=== PATIENT | male | born 1950 | race Caucasian/White ===

== ENCOUNTER → 2017-03-19 | Outpatient (CLI) | payer OTHER, BC ==
[~2017-03-19] MED LIST: ASCO500T16 PO; MINERAL SUPPLEMENT PO; VITA1CAP4 PO
[2017-03-19 13:16] LABS: BASO % 0.2 %; BASO ABS # 0.01 K/uL (0-0.2); COMPLETE YES; EOS % 1.8 %; HEMATOCRIT 46.8 % (42-52); IG% 0.2 %; LYMPH % 29.1 %; LYMPH ABS # 1.74 K/uL (1.2-3.4); MEAN CELL VOLUME 89.5 fL (80-100); MEAN CORPUSCULAR HGB CONC 34.6 g/dl (32-36); MONO % 10.7 %; PLATELET COUNT 224 K/uL (130-400); RED BLOOD COUNT 5.23 M/uL (4.7-6.1); WHITE BLOOD COUNT 5.97 K/uL (4.8-10.8)
[2017-03-19 13:57] LABS: ESTIMATED AVERAGE GLUCOSE 126 mg/dl; HA1C FLAG Normal (Normal)
[2017-03-19 14:30] LABS: ALT/SGPT 32 U/L (12-78); AST/SGOT 18 U/L (15-37); BLOOD UREA NITROGEN 26 mg/dl (7-18); BUN/CREATININE RATIO 31.3 (10-20); CALCIUM 9.2 mg/dl (8.5-10.1); CARBON DIOXIDE 28 mmol/L (21-32); CHLORIDE 103 mmol/L (98-107); CHOLESTEROL 173 mg/dl (0-200); CHOLESTEROL/HDL RATIO 3.7; CREATININE 0.84 mg/dl (0.60-1.40); GLUCOSE 109 mg/dl (70-99); HDL CHOLESTEROL 47 mg/dl; POTASSIUM 3.9 mmol/L (3.5-5.1); SODIUM 137 mmol/L (136-145); TRIGLYCERIDES 85 mg/dl (0-150); VERY LOW DENSITY LIPOPROT CALC 17 mg/dl
[2017-03-19 14:35] LABS: ALB/GLOB RATIO 1.2 (0.9-2); ALKALINE PHOSPHATASE 69 U/L (45-117); PROSTATE SPECIFIC ANTIGEN 0.474 ng/ml (0.000-4.000)
== END | disposition home or self-care (01) ==
LOC: C.LABSPEC 12:17
PROVIDERS: ATTEND Internal Medicine
DX: R73.9 Hyperglycemia, unspecified (principal); E78.5 Hyperlipidemia, unspecified; R53.83 Other fatigue; N40.0 Benign prostatic hyperplasia without lower urinary tract symptoms

== ENCOUNTER 2017-11-15 22:05 | Emergency (ER) | payer OTHER, BC ==
[~2017-11-15] VITALS: Ht 167.6 cm; Wt 63.4 kg
[2017-11-15 22:07] VITALS: TEMP 36.5; Ht 167.6 cm; Wt 63.4 kg
[2017-11-15] MEDS ORDERED: FAMOTIDINE 20MG/5ML IV PUSH IV STA (22:23)
[2017-11-15] MEDS ORDERED: DiphenhydrAMINE HCL 50 MG/ML VIAL IV STA (22:23)
[2017-11-15] MEDS: DEXAMETHASONE INJ 10 MG in SYRINGE 0 ML IV STA ×2 (22:35→22:53)
[2017-11-15] MEDS: DEXAMETHASONE SOD INJ 10 MG/ML VIAL ONE ×2 (22:35→22:36)
[2017-11-15] MEDS ORDERED: FAMO20TA9 PO (23:39)
[2017-11-15] MEDS ORDERED: DIPH25CA5 PO (23:39)
[2017-11-15 23:48] VITALS: BP 131/72; PULSE 50; O2SAT 96
--- NOTE | 2017-11-16 00:07 | EMERGENCY ROOM VISIT NOTE ---
History Report prepared by Randy: Katie Shook Under the Supervision of: Dr. Jarred Tom M.D. First contact with patient: 22:15 Chief Complaint: ALLERGIC REACTION Stated Complaint: REACTION TO BEE STING-RIGHT ARM Nursing Triage Summary: Pt stung by bee on right 3rd finger 2 hours [employer]IPE [employer] W[employer]. Pt reports redness, swelling and hives in hand that started 30min [employer]. Reports its spreading up right arm. Pt reports he was stung last year and developed celluitis. History of Present Illness The patient is a 67 year old male who presents to the Emergency Room with complaints of an episode of an allergic reaction that occurred today. The patient notes that he was reaching to move a flower pot when the pain began. He states that he iced his hand for 15 minutes. He notes that 30 minutes after he was stung, the area stated to bruise, swell, and become red. He describes the pain as a sharp and stabbing pain. He is not sure if the faiza is still in his hand. The patient complains of lightheadedness, swollen hands, hives on his arms, and redness on his arms. He notes that some of the redness on his arms is caused by sunburn. The patient denied difficulty breathing. He denies any recent falls. The patient notes that he did not eat today. He states that he has been stung one time in the past year, which has caused him to develop cellulitis. Source of History: patient Onset: Today Position: hand (right) Quality: sharp, stabbing Associated Symptoms: No SOB Note: The patient complains of lightheadedness, swollen hands, hives on his arms, and redness on his arms. Review of Systems See HPI for pertinent positives and negatives. A total of ten systems were reviewed and were otherwise negative. Past Medical & Surgical Medical Problems: (1) Atrial Fibrillation (2) Kidney stone Social History Smoking Status: Never Smoker Marital Status: Housing Status: lives with family Current/Historical Medications Scheduled Ascorbic Acid (Ascorbic Acid), 500 MG PO DAILY Diphenhydramine Hcl (Benadryl), 25 MG PO Q6 Famotidine (Pepcid), 1 TAB PO BID Vitamin E (E 1000), 1 CAP PO Q2D [Mineral Supplement], 2 TBS PO DAILY Allergies Coded Allergies: BEE STING (Verified Allergy, Severe, SWELLING, REDNESS UP ARM, 8/9/18) Penicillins (Verified Allergy, Intermediate, RASH, 09/03/13) Physical Exam Vital Signs Date Time Temp Pulse Resp B/P (MAP) Pulse Ox O2 Delivery O2 Flow Rate FiO2 11/15/17 23:48 50 14 131/72 96 Room Air 11/15/17 23:21 56 16 118/68 96 Room Air 11/15/17 22:15 142/80 11/15/17 22:12 96 Room Air 11/15/17 22:07 36.5 68 18 95 Room Air Physical Exam GENERAL: Awake, alert, well-appearing, in no distress HENT: Normocephalic, atraumatic. Oropharynx without edema or swelling. EYES: Normal conjunctiva. Sclera non-icteric. NECK: Supple. No nuchal rigidity. RESPIRATORY: Clear to auscultation. No wheezes. Normal respiratory effort. CARDIAC: Normal rate. Normal rhythm. Extremities warm and well perfused. GI: Soft, non-distended. No tenderness to palpation. No rebound or guarding. RECTAL: Deferred. MUSCULOSKELETAL: Atraumatic. Chest examination reveals no tenderness. UPPER EXTREMITIES: Redness and swelling of the right hand extending from the right middle finger to the distal portion of the hand. No significant tenderness. A few scattered hives on the right forearm and left forearm. Puncture wound consistent with bee sting on the lateral middle finger proximal phalange. No stinger present. No bruising noted. LOWER EXTREMITIES: Calves are equal size bilaterally and non-tender. No edema NEURO: Normal sensorium. No sensory or motor deficits noted. No facial droop. SKIN: Warm and dry. No rash or jaundice noted. Medical Decision & Procedures Medications Administered Medications (Trade) Dose Ordered Sig/Christine Route Start Time Stop Time Status Last Admin Dose Admin Dexamethasone Sodium Phosphate 10 mg/Syringe 2.5 ml @ 1 mls/min ONE STAT IV 11/15/17 22:23 11/15/17 22:25 DC 11/15/17 22:53 1 MLS/MIN Famotidine (Pepcid 20mg Iv Push) 20 mg ONE STAT IV 11/15/17 22:23 11/15/17 22:24 DC 11/15/17 22:35 20 MG Diphenhydramine HCl (Benadryl Inj) 25 mg NOW STAT IV 11/15/17 22:23 11/15/17 22:24 DC 11/15/17 22:34 25 MG ED Course 8: The patient was evaluated in room A10. A complete history and physical exam was performed. 2222: Ordered Benadryl Inj 25 mg IV, Famotidine 20 mg IV, Dexamethasone Sodium Phosphate 10 mg/Syringe 2.5 ml @ 1 mls/min IV, Decadron Inj 10 mg .route. 7: I reevaluated the patient. His rash is improving. Discussed results and discharge instructions: he verbalized understanding and agreement. The patient is ready for discharge. Medical Decision Differential diagnosis: Etiologies such as allergic reaction, anaphylaxis, urticaria, Steinberg-Jairo syndrome, toxic epidermal necrolysis, erythema multiforme, cellulitis, as well as others were entertained. Patient presents complaining of moving some flowering pots at home after coming home from [place] today and sustained a bee sting to his right middle finger. No significant allergic history in the past. States it was current on his right middle finger with significant redness and swelling no symptoms of his forearm. He came here for evaluation. No meds prior to arrival. Appears to be a fairly localized allergic reaction. Given Benadryl, steroid, and Pepcid. No evidence of acute anaphylaxis. Not in shock. No respiratory distress. Ice placed on area. Stinger is not present. Patient's symptoms began to improve after this treatment. Intact neurovascular status of right hand. Discussed return criteria with him and to monitor for systyremic symptoms or wound infection. Advised him to continue to use Benadryl and Pepcid for the next several days; Rx given. He was agreeable with this. Medication Reconcilliation Current Medication List: was personally reviewed by me Blood Pressure Screening Patient's blood pressure: Elevated blood pressure Blood pressure disposition: Elevated BP felt to be situational Impression Primary Impression: Allergic reaction Additional Impression: Bee sting reaction Scribe Attestation The scribe's documentation has been prepared under my direction and personally reviewed by me in its entirety. I confirm that the note above accurately reflects all work, treatment, procedures, and medical decision making performed by me. Departure Information Dispostion Home / Self-Care Prescriptions Famotidine (PEPCID) 20 Mg Tab 1 TAB PO BID for 5 Days, #10 TAB 5 Refills Prov: Jarred Tom M.D. 11/15/17 Diphenhydramine Hcl (Benadryl) 25 Mg Cap 25 MG PO Q6 for 3 Days, #12 CAP Prov: Jarred Tom M.D. 11/15/17 Referrals Boaz Plunkett M.D. (PCP) Forms HOME CARE DOCUMENTATION FORM, IMPORTANT VISIT INFORMATION Patient Instructions My [facility] Additional Instructions Please use Benadryl and Pepcid for the next 2-3 days and monitor for any worsening of your allergic reaction. If you begin to experience worsening specifically any difficulty breathing swelling of your face mouth or throat please call 911 and return emergently to the emergency department. Otherwise if questions and follow-up with your regular doctor in the next week. Monitor for signs of infection in this area as well. Problem Qualifiers Primary Impression: Allergic reaction Encounter type: initial encounter Qualified Codes: T78.40XA - Allergy, unspecified, initial encounter Additional Impression: Bee sting reaction Encounter type: initial encounter Injury intent: accidental or unintentional Qualified Codes: T63.441A - Toxic effect of venom of bees, accidental (unintentional), initial encounter
== END 2017-11-15 23:58 | disposition home or self-care (01) ==
LOC: C.EDB 22:06 → C.EDA 23:58
DX: T63.441A Toxic effect of venom of bees, accidental (unintentional), initial encounter (principal); I48.91 Unspecified atrial fibrillation; Z84.1 Family history of disorders of kidney and ureter; Z79.899 Other long term (current) drug therapy; Z88.0 Allergy status to penicillin; Z91.030 Bee allergy status